=== PATIENT | female | born 1980 | race Hispanic/Latino ===

== ENCOUNTER 2019-01-06 15:59 | Emergency (ER) | payer MEDICAID, OTHER ==
[2019-01-06 17:04] LABS: RAPID GROUP A STREP NEGATIVE (NEGATIVE)
[2019-01-06] MEDS ORDERED: ONDANSETRON ODT 4 MG TAB ONE (17:38)
== END 2019-01-06 18:01 | disposition home or self-care (01) ==
LOC: EDH 15:59
DX: A08.39 Other viral enteritis (principal); Z90.5 Acquired absence of kidney
CPT/HCPCS: 87804; 87880

== ENCOUNTER 2021-01-13 06:57 | Day surgery (SDC) | payer OTHER ==
[~2021-01-13] VITALS: Ht 154.9 cm; Wt 115.2 kg
[2021-01-13] VITALS (9 sets, daily range): BP systolic 68–146; BP diastolic 35–84
[~2021-01-13 06:57] MED LIST: 0.9%NACL 1000ML 1,000 ML IV ONE; AMLO-257 PO; CITA10TA89 PO; GING250C PO; PANT20TA18 PO; TURM1TAB PO
[2021-01-13] MEDS ORDERED: TUMERIC TEA PO (07:37)
[2021-01-13] MEDS ORDERED: GINGER TEA PO (07:37)
[2021-01-13] MEDS ORDERED: PROPOFOL 10 MG/ML 20ML VIAL IV ONE (08:18)
[2021-01-13] MEDS ORDERED: MIDAZOLAM HCL 1 MG/ML 2ML VIAL ONE (08:28)
== END 2021-01-13 09:20 | disposition home or self-care (01) ==
LOC: DAH 06:57 → ENDO 06:57
PROVIDERS: ATTEND Internal Medicine Gastroenterology
DX: R93.2 Abnormal findings on diagnostic imaging of liver and biliary tract (principal); R10.10 Upper abdominal pain, unspecified; R12 Heartburn; K29.50 Unspecified chronic gastritis without bleeding; K80.20 Calculus of gallbladder without cholecystitis without obstruction; K76.0 Fatty (change of) liver, not elsewhere classified; K83.8 Other specified diseases of biliary tract; R93.5 Abnormal findings on diagnostic imaging of other abdominal regions, including retroperitoneum; I10 Essential (primary) hypertension; F41.9 Anxiety disorder, unspecified; Z85.43 Personal history of malignant neoplasm of ovary; Z90.710 Acquired absence of both cervix and uterus; Z79.899 Other long term (current) drug therapy; Z20.822 Contact with and (suspected) exposure to COVID-19
CPT/HCPCS: 43239; 43259; 87635; A4215 ×2; A4221; A4222; A4223; A4606; A4620; A4657; A4663; C9803; J2250; J2704; J7030